=== PATIENT | female | born 1955 | race Caucasian/White ===

== ENCOUNTER 2020-08-16 05:20 | Inpatient (IN) | payer BC, MEDICARE ==
[2020-08-10 14:50] LABS: CLARITY,URINE SLIGHTLY CLOUDY (Clear); COLOR,URINE STRAW (Yellow); GLUCOSE, URINE NEGATIVE (Neg); KETONES,URINE NEGATIVE (Neg); LEUKOCYTE ESTERASE ,URINE NEGATIVE (Neg); NITRITES, URINE NEGATIVE (Neg); OCCULT BLOOD,URINE NEGATIVE (Neg); PH,URINE 5.5 (4.8-8.0); PROTEIN,URINE NEGATIVE (Neg); UROBILINOGEN,URINE 0.2 E.U/dL (0.2-1.0)
[2020-08-10 14:51] LABS: UA COLLECTION TYPE CLN CATCH MIDSTREAM
[2020-08-10 14:55] LABS: BASOPHILS # (AUTO) 0.1 X10'3 (0-0.2); BASOPHILS % (AUTO) 0.9 % (0-1); EOSINOPHILS # (AUTO) 0.1 X10'3 (0-0.9); EOSINOPHILS % (AUTO) 0.7 % (0-6); LYMPHOCYTES # (AUTO) 3.6 X10'3 (1.1-4.8); MEAN CORPUSCULAR HEMOGLOBIN 30.3 PG (27.0-31.0); MEAN CORPUSCULAR HGB CONC 33.4 g/dL (33.0-36.5); MEAN CORPUSCULAR VOLUME 90.7 FL (78-98); MEAN PLATELET VOLUME 9.6 FL (7.4-10.4); MONOCYTES % (AUTO) 9.9 % (2-12); NEUTROPHILS % (AUTO) 51.5 % (42-75); PRE OP HEMATOCRIT 42.8 % (35.0-45.0); PRE OP HEMOGLOBIN 14.3 g/dL (12.0-16.0); PRE OP PLATELET COUNT 270 X10'3 (140-440); RED BLOOD COUNT 4.72 X10'6 (4.20-5.60); RED CELL DISTRIBUTION WIDTH 13.1 % (11.5-14.5)
[2020-08-10 15:05] LABS: MUCUS STRANDS FEW /LPF (Neg); SQUAMOUS EPITHELIAL CELL,UR FEW /LPF (FEW)
[2020-08-10 15:06] LABS: BACTERIA,URINE FEW /HPF (Neg); RBC,URINE 0-2 /HPF (0-2); WBC,URINE 0-4 /HPF (0-4)
[2020-08-10 15:14] LABS: ALKALINE PHOSPHATASE 66 IU/L (46-116); BLOOD UREA NITROGEN 14 MG/DL (7-18); BUN/CREATININE RATIO 16.5 (6.6-38.0); CALCIUM 9.3 MG/DL (8.5-10.1); CHLORIDE 102 MMOL/L (99-107); CREATININE 0.85 MG/DL (0.40-0.90); PRE OP ALT 25 U/L (30-65); PRE OP ANION GAP 5 (8-16); PRE OP AST 17 U/L (10-37); PRE OP BILIRUB, TOTAL 0.3 MG/DL (0.0-1.0); PRE OP GLUCOSE 113 MG/DL (70-104); PRE OP POTASSIUM 3.8 MMOL/L (3.4-5.1); PRE OP SODIUM 139 MMOL/L (135-145); TOTAL CARBON DIOXIDE 32.5 MMOL/L (24-32); eGFR 68 ML/MIN
[2020-08-16] VITALS (19 sets, daily range): BP systolic 108–154; BP diastolic 58–92
[~2020-08-16] VITALS: Ht 165.1 cm; Wt 97.1 kg
[~2020-08-16 05:20] MED LIST: ASPI81TA52 PO; CYCL-394 PO; DIAZ10TA4 PO; DOCU-272 PO; ESCI10TA61 PO; HYDR-4353 PO; LEVO125T PO; LIDO700A32 TOP; LISI-600 PO; LISI1TAB32 PO; MULT-1085 PO; MULT-1130 PO; OLOP2.5D12 EACHEYE; OMEP20CA15 PO; ringers solution, lacted 1,000 ML IV SCH
[2020-08-16] MEDS ORDERED: famotidine 20mg tablet PO ONE (05:30)
[2020-08-16] MEDS ORDERED: ceFAZolin 2gm in dextrose, iso 50 ML IV ONE (05:30)
[2020-08-16] MEDS ORDERED: NORMAL SALINE IV ONE ×3 (05:30→13:00)
[2020-08-16] MEDS ORDERED: vancomycin 1,500 MG in NS 300ml IV soln IV ONE (05:30)
[2020-08-16] MEDS ORDERED: TRANEXAMIC ACID IV ONE ×3 (05:30→13:00)
[2020-08-16] MEDS ORDERED: LIDOcaine 1% (10mg/ml) 2ml vial ONE (05:55)
--- NOTE | 2020-08-16 06:15 | NUR ---
VALUABLES TO PT SAFE, PHONE AND TABLET. SAFE BAG NUMBER [id number]
[2020-08-16] MEDS ORDERED: mineral oil 10ml sterile, topical TP ONE (06:41)
[2020-08-16] MEDS ORDERED: ROPIVAcaine inj 200 MG, ketorolac tromethamine inj. 15 MG in normal saline 100ml IV sol... IU ONE (06:45)
[2020-08-16] MEDS ORDERED: tetracaine 1% (10mg/ml) pres. free inj. ONE (07:12)
[2020-08-16] MEDS ORDERED: MIDAZolam 1mg/ml 10ml vial ONE (07:14)
[2020-08-16] MEDS ORDERED: morphine /PF 1mg/ml 10ml inj. ONE (07:14)
[2020-08-16] MEDS ORDERED: fentaNYL/PF 50MCG/1 ML 2ML syringe ONE (07:14)
[2020-08-16] MEDS ORDERED: LIDOcaine 2% (20mg/ml) 5ml vial ONE (07:16)
[2020-08-16] MEDS ORDERED: propofol inj 20 ML IV ONE ×4 (07:16→08:39)
[2020-08-16] MEDS ORDERED: ringers solution, lacted 1,000 ML IV SCH (07:22)
[2020-08-16] MEDS ORDERED: ROPIVAcaine 0.2% (10 MG/5 ML) BOLUS INJECTION ADDCANAL PRN (07:25)
[2020-08-16] MEDS ORDERED: morphine 4 MG/ML inj SYRINge IV PRN (07:25)
[2020-08-16] MEDS ORDERED: morphine 2 MG/ML inj. syringe IV PRN (07:25)
[2020-08-16] MEDS ORDERED: labetalol 20mg/4ml (5mg/ml) syringe IV PRN (07:25)
[2020-08-16] MEDS ORDERED: hydrALAZINE 20mg/ml inj. IV PRN (07:25)
[2020-08-16] MEDS ORDERED: diphenhydrAMINE 50 mg/ml inj IV PRN (07:25)
[2020-08-16] MEDS ORDERED: ondansetron/PF 4mg/2ml inj IV PRN ×3 (07:25→09:35)
[2020-08-16] MEDS ORDERED: fentaNYL/PF 50MCG/1 ML 2ML syringe IV PRN ×2 (07:25)
[2020-08-16] MEDS ORDERED: diphenhydrAMINE 50 mg/ml inj ONE (07:38)
[2020-08-16] MEDS ORDERED: ROPIVAcaine 0.5% (5mg/ml) 30ml vial ONE (08:39)
[2020-08-16] MEDS ORDERED: diazepam 5mg tablet PO PRN (09:35)
[2020-08-16] MEDS ORDERED: HYDROmorphone inj. 0.5 MG/0.5 ML DISP.SYRIN IV PRN (09:35)
[2020-08-16] MEDS ORDERED: acetaminophen 325mg tablet PO PRN (09:35)
[2020-08-16] MEDS ORDERED: bisacodyl 10mg suppository rectal RC PRN (09:35)
[2020-08-16] MEDS ORDERED: diphenhydrAMINE 25mg capsule PO PRN ×2 (09:35)
[2020-08-16] MEDS ORDERED: oxyCODONE IR 5mg (immed. release) tablet PO PRN (09:35)
[2020-08-16] MEDS ORDERED: HYDROmorphone 1 mg/ml syringe IV PRN (09:35)
[2020-08-16] MEDS ORDERED: magnesium hydroxide 30ml (MOM) UD suspension PO PRN (09:35)
[2020-08-16] MEDS ORDERED: cyclobenzaprine 10mg tablet PO PRN (09:35)
[2020-08-16] MEDS ORDERED: HYDROcodone/acetaminophen 10/325mg tab PO PRN (09:35)
--- NOTE | 2020-08-16 10:03 | NUR ---
Received from OR via , accompanied by Anesthesiologist DR FINNEGAN and report given by Anesthesiolgist. AWAKENS TO VOICE. VITALS STABLE. DRESSING DI. MAGDI PAIN. SENSATION JUST ABOVE THE HIPS. TALLEY CLEAR URINE.
[2020-08-16] MEDS: ROPIVAcaine 0.2%/PF PUMP/bolus 550 ML ADDCANAL SCH ×2 (10:30→23:23)
--- NOTE | 2020-08-16 11:13 | NUR ---
Report called to receiving nurse. Transferred via BED Belongings . Special Issues communicated to receiving nurse. AWAKE AND ORIENTED. VITALS STABLE. DRESSING DI. MAGDI PAIN. TO ORTHO RM [id number] AT THIS TIME.
--- NOTE | 2020-08-16 11:15 | NUR ---
PT ARRIVED ON THE FLOOR IN STABLE CONDITION
[2020-08-16] MEDS: acetaminophen 325mg tablet PO SCH ×2 (14:31→19:32)
[2020-08-16] MEDS: potassium cl 20mEq in 1/2 NS 1,000 ML IV SCH ×2 (16:18→17:35)
[2020-08-16] MEDS: ceFAZolin 1GM/D5W- ADD-VANTAGE 50 ML IV SCH ×2 (16:23→23:24)
--- NOTE | 2020-08-16 18:11 | NUR ---
Problems reprioritized. Patient report given, questions answered & plan of care reviewed with MANFRED KILGORE.
[2020-08-16] MEDS: docusate sod 100mg capsule PO SCH (19:32)
[2020-08-16] MEDS: oxyCODONE IR 5mg (immed. release) tablet PO PRN ×2 (19:33→23:24)
[2020-08-16] MEDS ORDERED: vancomycin/NS 1 GM ADD-VANTAGE 250 ML IV SCH (20:00)
[2020-08-16] MEDS ORDERED: non-formulary drug (Multivits-Min/Folic Acid/Biot (Hair, Skin & Nails Caplet) 1 TAB) PO SCH (20:00)
[2020-08-16] MEDS: tetrahydrozoline 0.05% 15ml ophthalmic drops EACHEYE SCH (20:49)
[2020-08-16] MEDS ORDERED: sennosides 8.6mg tablet PO SCH (21:00)
[2020-08-16] MEDS ORDERED: lisinopril 20mg tablet PO SCH (21:00)
[2020-08-17] MEDS: potassium cl 20mEq in 1/2 NS 1,000 ML IV SCH ×2 (01:35→11:10)
[2020-08-17] MEDS: acetaminophen 325mg tablet PO SCH ×2 (01:40→09:01)
[2020-08-17 02:00] VITALS: BP 114/53
--- NOTE | 2020-08-17 05:00 | NUR ---
pt upset about alarms going off and not being able to find call light. roommate assisted with call light. assisted with needs, educated about alternate ways to get ahold of staff if call light not working. patient calmed down, pain under control.
[2020-08-17] MEDS: oxyCODONE IR 5mg (immed. release) tablet PO PRN ×2 (05:24→11:52)
--- NOTE | 2020-08-17 05:45 | NUR ---
lab attempted to draw blood x2. unsuccessful. will retime labs for a different smelter liner. Mak aware.
[2020-08-17 06:00] VITALS: BP 153/72
[2020-08-17] MEDS ORDERED: pantoprazole 40mg Tablet.DR PO SCH (07:30)
[2020-08-17] MEDS ORDERED: ONQPUMP ADDCANAL (07:55)
[2020-08-17] MEDS ORDERED: ASPI-1 PO (07:55)
[2020-08-17] MEDS: tetrahydrozoline 0.05% 15ml ophthalmic drops EACHEYE SCH (08:00)
[2020-08-17] MEDS ORDERED: lisinopril 10 MG tablet PO SCH (08:00)
[2020-08-17] MEDS ORDERED: ESCITALOPRAM OXALATE 5 MG TABLET PO SCH (08:00)
[2020-08-17] MEDS ORDERED: multivitamins, therapeutics tablet PO SCH (08:00)
[2020-08-17] MEDS ORDERED: levoTHYROXINE 125mcg tablet PO SCH (08:00)
[2020-08-17] MEDS ORDERED: HYDROchlorothiazide 12.5mg capsule PO SCH (08:00)
[2020-08-17] MEDS ORDERED: aspirin 325mg tablet PO SCH (08:30)
[2020-08-17] MEDS: docusate sod 100mg capsule PO SCH (09:00)
[2020-08-17 09:02] VITALS: BP_SYST 140
[2020-08-18] MEDS ORDERED: acetaminophen 325mg tablet PO PRN (09:35)
== END 2020-08-17 11:54 | disposition home health service (06) | DRG 470 ==
LOC: PAS IN 05:20 → UNDOADMIN 05:20 → EDSTATUS 07:30 → PAS IN 09:35 → ORTHO 4S 11:15 → PAS IN 11:15
PROVIDERS: ADMIT Orthopaedic Surgery; ATTEND Orthopaedic Surgery
PROC: 3E0T3BZ Introduction of Anesthetic Agent into Peripheral Nerves and Plexi, Percutaneous Approach (ICD-10-PCS; 2020-08-16)
PROC: 8E0YXBZ Computer Assisted Procedure of Lower Extremity (ICD-10-PCS; 2020-08-16)
PROC: 8E0Y0CZ Robotic Assisted Procedure of Lower Extremity, Open Approach (ICD-10-PCS; 2020-08-16)
PROC: 0SRC0J9 Replacement of Right Knee Joint with Synthetic Substitute, Cemented, Open Approach (ICD-10-PCS; principal; 2020-08-16 07:17)
DX: M17.11 Unilateral primary osteoarthritis, right knee (principal); E03.9 Hypothyroidism, unspecified; F41.8 Other specified anxiety disorders; I10 Essential (primary) hypertension; I89.0 Lymphedema, not elsewhere classified; K21.9 Gastro-esophageal reflux disease without esophagitis; Z79.899 Other long term (current) drug therapy; Z79.82 Long term (current) use of aspirin
CPT/HCPCS: Z7506; Z7508; 36415; 76937; 80053; 81001; 82948; 84443; 85025; 87081; 87635; 97110; 97161; 97530; A4215; A6454; A7000; C1713; C1758; C1776; G0378; J0690; J1200; J2001; J2250; J2270; J2704; J2795; J3010; J3370; J3480; J7040; J7120